=== PATIENT | female | born 1965 | race Hispanic/Latino ===

== ENCOUNTER 2020-07-27 23:21 | Emergency (ER) | payer SELFPAY ==
[2020-07-28 00:55] LABS: Basophils # (Auto) 0.1 K/mm3 (0.0-0.1); Basophils % (Auto) 1.3 % (0.0-1.8); Eosinophils # (Auto) 0.1 K/mm3 (0.0-0.4); Eosinophils % (Auto) 1.2 % (0.0-4.3); Lymphocytes # (Auto) 2.6 K/mm3 (1.2-5.4); Lymphocytes % (Auto) 36.2 % (13.4-35.0); Mean Corpuscular HGB Conc 36 % (30-34); Mean Corpuscular Volume 91 fl (79-97); Monocytes # (Auto) 0.4 K/mm3 (0.0-0.8); Monocytes % (Auto) 5.7 % (0.0-7.3); Platelet Count 170 K/mm3 (140-440); Red Cell Distribution Width 13.8 % (13.2-15.2)
[2020-07-28 00:57] LABS: Hematocrit 43.9 % (30.3-42.9); Hemoglobin 15.7 gm/dl (10.1-14.3)
[2020-07-28 02:37] LABS: BUN/Creatinine Ratio 11; Blood Urea Nitrogen 8 mg/dL (7-17)
[2020-07-28 02:38] LABS: Alanine Aminotransferase 120 units/L (7-56); Calcium 9.1 mg/dL (8.4-10.2); Hemolysis Index 55
[2020-07-28] MEDS ORDERED: SODIUM CHLORIDE 0.9% 1000 ML 1,000 ML IV ONE (04:29)
[2020-07-28] MEDS ORDERED: ONDANSETRON 4 MG/2 ML INJ IV ONE ×2 (04:29→04:57)
[2020-07-28 04:30] LABS: Bilirubin,Urine NEG (Negative); Blood,Urine NEG (Negative); Color,Urine Yellow (Yellow); Mucus,Urine FEW /HPF; Protein,Urine <15 mg/dL mg/dL (Negative); WBC,Urine < 1.0 /HPF (0.0-6.0)
[2020-07-28] MEDS ORDERED: MORPHINE 4 MG/1 ML INJ IV ONE ×2 (04:57→06:28)
[2020-07-28] MEDS ORDERED: diphenhydrAMINE 50 MG/ML VIAL IV ONE (05:24)
[2020-07-28] MEDS ORDERED: FAMOTIDINE 20 MG/2 ML INJ IV ONE (05:24)
[2020-07-28] MEDS ORDERED: diphenhydrAMINE 50 MG/ML VIAL ONE (05:26)
--- NOTE | 2020-07-28 05:40 | Cat Scan Report ---
CT abdomen pelvis w con INDICATION: RLQ/ righth sided abdominal pain. TECHNIQUE: All CT scans at this location are performed using the following dose modulation technique: Automated exposure control. CONTRAST: Omnipaque 300, 100 cc IV injection. COMPARISON: None available. CT ABDOMEN: The parenchymal organs are unremarkable in appearance. Negative for abdominal mass, fluid or inflammation. The bowel is not dilated or thickened. CT PELVIS: Negative for distal ureteral stone, pelvic fluid collection or inflammation. The appendix is normal. IMPRESSION: Negative for obstruction or localized inflammation. Signer Name: Octaviano Esteban MD Signed: 07/28/2020 5:35 AM Workstation Name: [id number]
--- NOTE | 2020-07-28 05:48 | Emergency Department Report ---
ED General Adult HPI - General Chief complaint: Abdominal Pain Stated complaint: ABDOMINAL PAIN Time Seen by Provider: 07/28/20 04:06 Source: patient, family Mode of arrival: Ambulatory Limitations: No Limitations - History of Present Illness Initial comments: 54-year-old female patient with history of diabetes, COPD, and hypertension presents with complaints of right lower abdominal pain x 3 to 4 hours [employer]. She also reports some nausea/vomiting and diarrhea. Patient denies any hematemesis/coffee-ground emesis, melena/hematochezia, chest pain, shortness of breath, fever/chills/sweats, urinary symptoms, or vaginal discharge/dyspareunia. She rates her current pain as a 10/10 in severity and states it worsens with movement of her abdomen. Patient reports history of multiple bowel obstructions and abdominal surgeries. Denies history of appendectomy. -: Sudden Severity scale (0 -10): 10 - Related Data Previous Rx's Medication Instructions Recorded Last Taken Type Dicyclomine [Bentyl] 20 mg PO QID PRN #40 tablet 07/28/20 Unknown Rx Allergies Allergy/AdvReac Type Severity Reaction Status Date / Time Iodinated Contrast Media Allergy Anaphylaxis Verified 07/28/20 00:21 ketorolac [From Toradol] Allergy Anaphylaxis Verified 07/28/20 00:21 ED Review of Systems ROS: Stated complaint: ABDOMINAL PAIN Other details as noted in HPI Constitutional: denies: chills, diaphoresis, fever, malaise, weakness ENT: denies: throat pain Respiratory: denies: cough Cardiovascular: denies: chest pain Endocrine: denies: excessive sweating Gastrointestinal: abdominal pain, nausea, vomiting, diarrhea. denies: consti pation, hematemesis, melena, hematochezia Genitourinary: denies: urgency, dysuria, frequency, hematuria, discharge, abnormal menses, dyspareunia Musculoskeletal: denies: back pain Neurological: denies: headache, weakness, numbness, paresthesias Hematological/Lymphatic: denies: easy bleeding, swollen glands ED Past Medical Hx - Past Medical History Hx Hypertension: Yes Hx COPD: Yes Additional medical history: Bowel Obstruction - Surgical History Past Surgical History?: Yes Additional Surgical History: Bowel Obstruction, Trach x 3 - Social History Smoking Status: Never Smoker Substance Use Type: None - Medications Home Medications: Home Medications Medication Instructions Recorded Confirmed Last Taken Type Dicyclomine [Bentyl] 20 mg PO QID PRN #40 tablet 07/28/20 Unknown Rx ED Physical Exam - General Limitations: No Limitations General appearance: alert, in no apparent distress, obese - Head Head exam: Present: atraumatic, normocephalic - Eye Eye exam: Present: normal appearance - Neck Neck exam: Present: normal inspection - Respiratory Respiratory exam: Present: normal lung sounds bilaterally. Absent: respiratory distress - Cardiovascular Cardiovascular Exam: Present: regular rate, normal rhythm - GI/Abdominal GI/Abdominal exam: Present: distended (Distention versus abdominal obesity), tenderness (Right lower quadrant), normal bowel sounds. Absent: rebound, rigid - Extremities Exam Extremities exam: Present: normal inspection - Back Exam Back exam: Present: normal inspection - Neurological Exam Neurological exam: Present: alert, oriented X3 - Psychiatric Psychiatric exam: Present: normal affect, normal mood - Skin Skin exam: Present: warm, dry, intact, normal color. Absent: rash, cyanosis, diaphoretic ED Course Vital Signs 07/28/20 07/28/20 00:24 05:50 Temperature 98.6 F 98.0 F Pulse Rate 96 H 88 Respiratory 18 17 Rate Blood Pressure 152/92 Blood Pressure 183/91 [Right] O2 Sat by Pulse 95 97 Oximetry ED Medical Decision Making - Lab Data Result diagrams: 07/28/20 00:37 07/28/20 00:37 Lab Results 07/28/20 07/28/20 07/28/20 Range/Units 00:37 00:37 03:53 WBC 7.2 (4.5-11.0) K/mm3 RBC 4.80 (3.65-5.03) M/mm3 Hgb 15.7 H (10.1-14.3) gm/dl Hct 43.9 H (30.3-42.9) % MCV 91 (79-97) fl MCH 33 H (28-32) pg MCHC 36 H (30-34) % RDW 13.8 (13.2-15.2) % Plt Count 170 (140-440) K/mm3 Lymph % (Auto) 36.2 H (13.4-35.0) % Elk % (Auto) 5.7 (0.0-7.3) % Eos % (Auto) 1.2 (0.0-4.3) % Baso % (Auto) 1.3 (0.0-1.8) % Lymph # 2.6 (1.2-5.4) K/mm3 Elk # 0.4 (0.0-0.8) K/mm3 Eos # 0.1 (0.0-0.4) K/mm3 Baso # 0.1 (0.0-0.1) K/mm3 Seg Neutrophils % 55.6 (40.0-70.0) % Seg Neutrophils # 4.0 (1.8-7.7) K/mm3 Sodium 136 L (137-145) mmol/L Potassium 3.6 (3.6-5.0) mmol/L Chloride 98 (98-107) mmol/L Carbon Dioxide 22 (22-30) mmol/L Anion Gap 20 mmol/L BUN 8 (7-17) mg/dL Creatinine 0.7 (0.6-1.2) mg/dL Estimated GFR > 60 ml/min BUN/Creatinine Ratio 11 % Glucose 342 H (65-100) mg/dL Calcium 9.1 (8.4-10.2) mg/dL Total Bilirubin 0.60 (0.1-1.2) mg/dL AST 94 H (5-40) units/L ALT 120 H (7-56) units/L Alkaline Phosphatase 119 (35-129) units/L Total Protein 6.7 (6.3-8.2) g/dL Albumin 4.0 (3.9-5) g/dL Albumin/Globulin Ratio 1.5 % Lipase (13-60) units/L Urine Color Yellow (Yellow) Urine Turbidity Clear (Clear) Urine pH 6.0 (5.0-7.0) Ur Specific [place] 1.022 (1.003-1.030) Urine Protein <15 mg/dl (Negative) mg/dL Urine Glucose (UA) >=500 (Negative) mg/dL Urine Ketones Neg (Negative) mg/dL Urine Blood Neg (Negative) Urine Nitrite Neg (Negative) Urine Bilirubin Neg (Negative) Urine Urobilinogen 2.0 (<2.0) mg/dL Ur Leukocyte Esterase Neg (Negative) Urine WBC (Auto) < 1.0 (0.0-6.0) /HPF Urine RBC (Auto) 1.0 (0.0-6.0) /HPF U Epithel Cells (Auto) 2.0 (0-13.0) /HPF Urine Mucus Few /HPF 07/28/20 Range/Units 03:56 WBC (4.5-11.0) K/mm3 RBC (3.65-5.03) M/mm3 Hgb (10.1-14.3) gm/dl Hct (30.3-42.9) % MCV (79-97) fl MCH (28-32) pg MCHC (30-34) % RDW (13.2-15.2) % Plt Count (140-440) K/mm3 Lymph % (Auto) (13.4-35.0) % Elk % (Auto) (0.0-7.3) % Eos % (Auto) (0.0-4.3) % Baso % (Auto) (0.0-1.8) % Lymph # (1.2-5.4) K/mm3 Elk # (0.0-0.8) K/mm3 Eos # (0.0-0.4) K/mm3 Baso # (0.0-0.1) K/mm3 Seg Neutrophils % (40.0-70.0) % Seg Neutrophils # (1.8-7.7) K/mm3 Sodium (137-145) mmol/L Potassium (3.6-5.0) mmol/L Chloride (98-107) mmol/L Carbon Dioxide (22-30) mmol/L Anion Gap mmol/L BUN (7-17) mg/dL Creatinine (0.6-1.2) mg/dL Estimated GFR ml/min BUN/Creatinine Ratio % Glucose (65-100) mg/dL Calcium (8.4-10.2) mg/dL Total Bilirubin (0.1-1.2) mg/dL AST (5-40) units/L ALT (7-56) units/L Alkaline Phosphatase (35-129) units/L Total Protein (6.3-8.2) g/dL Albumin (3.9-5) g/dL Albumin/Globulin Ratio % Lipase 59 (13-60) units/L Urine Color (Yellow) Urine Turbidity (Clear) Urine pH (5.0-7.0) Ur Specific [place] (1.003-1.030) Urine Protein (Negative) mg/dL Urine Glucose (UA) (Negative) mg/dL Urine Ketones (Negative) mg/dL Urine Blood (Negative) Urine Nitrite (Negative) Urine Bilirubin (Negative) Urine Urobilinogen (<2.0) mg/dL Ur Leukocyte Esterase (Negative) Urine WBC (Auto) (0.0-6.0) /HPF Urine RBC (Auto) (0.0-6.0) /HPF U Epithel Cells (Auto) (0-13.0) /HPF Urine Mucus /HPF - Radiology Data Radiology results: report reviewed CT abdomen pelvis w con INDICATION: RLQ/ righth sided abdominal pain. TECHNIQUE: All CT scans at this location are performed using the following dose modulation technique: Automated exposure control. CONTRAST: Omnipaque 300, 100 cc IV injection. COMPARISON: None available. CT ABDOMEN: The parenchymal organs are unremarkable in appearance. Negative for abdominal mass, fluid or inflammation. The bowel is not dilated or thickened. CT PELVIS: Negative for distal ureteral stone, pelvic fluid collection or inflammation. The appendix is normal. IMPRESSION: Negative for obstruction or localized inflammation. - Medical Decision Making 54-year-old female patient with history of diabetes and hypertension presents with complaints of right lower abdominal pain x 3 to 4 hours [employer]. Patient reports history of multiple bowel obstructions and abdominal surgeries. Tenderness noted to right lower quadrant/side on exam. CT abdomen and pelvis was performed with contrast and is negative for any acute abnormalities. Patient declines pelvic ultrasound. Review patient in [place] [employer]ATE-patient's records are suspicious for drug-seeking behavior. Patient requested Benadryl after having itching from the IV contrast. Her vitals are normal and she is nontoxic-appearing. Patient is stable for discharge home and follow-up with GI. Strict return precautions were discussed in detail with patient who verbalizes understanding. Critical care attestation.: If time is entered above; I have spent that time in minutes in the direct care of this critically ill patient, excluding procedure time. ED Disposition Clinical Impression: Acute abdominal pain Disposition: DC- TO HOME OR SELFCARE Is pt being admited?: No Condition: Stable Instructions: Abdominal Pain (ED) Prescriptions: Dicyclomine [Bentyl] 20 mg PO QID PRN #40 tablet PRN Reason: abdominal pain Referrals: AUDI JOHN JR, MD [Primary Care Provider] - 3-5 Days [facility] [Provider Group] - 2-3 Days
[2020-07-28 05:51] VITALS: BP 183/91
== END 2020-07-28 07:00 | disposition home or self-care (01) ==
LOC: ED 23:21
DX: R10.31 Right lower quadrant pain (principal); R11.2 Nausea with vomiting, unspecified; R19.7 Diarrhea, unspecified; I10 Essential (primary) hypertension; J44.9 Chronic obstructive pulmonary disease, unspecified; Z88.6 Allergy status to analgesic agent; Z91.041 Radiographic dye allergy status
CPT/HCPCS: 36415; 74177; 80053; 81001; 83690; 85025; 96361; 96374; 96375; 99284; J1200; J2270; J2405; J7030; Q9967

== ENCOUNTER 2021-02-08 17:31 | Emergency (ER) | payer OTHER ==
[2021-02-08] MEDS ORDERED: SODIUM CHLORIDE 0.9% 1000 ML 1,000 ML IV ONE (17:58)
[2021-02-08] MEDS ORDERED: ONDANSETRON 4 MG/2 ML INJ IV ONE ×2 (17:58→18:43)
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
[2021-02-08] MEDS ORDERED: fentaNYL 100 MCG/2 ML INJ IV ONE ×2 (18:43→20:48)
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
[2021-02-08 19:01] LABS: Basophils % (Auto) 0.7 % (0.0-1.8); Eosinophils # (Auto) 0.1 K/mm3 (0.0-0.4); Eosinophils % (Auto) 1.5 % (0.0-4.3); Lymphocytes # (Auto) 2.4 K/mm3 (1.2-5.4); Lymphocytes % (Auto) 40.4 % (13.4-35.0); Mean Corpuscular HGB Conc 36 % (30-34); Mean Corpuscular Volume 91 fl (79-97); Monocytes # (Auto) 0.3 K/mm3 (0.0-0.8); Monocytes % (Auto) 4.5 % (0.0-7.3); Platelet Count 159 K/mm3 (140-440); Red Blood Count 4.53 M/mm3 (3.65-5.03); Red Cell Distribution Width 13.7 % (13.2-15.2)
[2021-02-08 19:06] LABS: Hematocrit 41.4 % (30.3-42.9); Hemoglobin 14.9 gm/dl (10.1-14.3)
[2021-02-08 19:13] LABS: Alanine Aminotransferase 103 units/L (7-56); Albumin 3.8 g/dL (3.9-5); Blood Urea Nitrogen 6 mg/dL (7-17); Calcium 8.5 mg/dL (8.4-10.2); Hemolysis Index 35
[2021-02-08 19:14] LABS: BUN/Creatinine Ratio 10
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
[2021-02-08 21:04] LABS: Bilirubin,Urine NEG (Negative); Blood,Urine NEG (Negative); Color,Urine Yellow (Yellow); Mucus,Urine FEW /HPF; Protein,Urine <15 mg/dL mg/dL (Negative); Urobilinogen,Urine < 2.0 mg/dL (<2.0); WBC,Urine < 1.0 /HPF (0.0-6.0)
[2021-02-08 21:31] VITALS: BP 148/72
== END 2021-02-08 21:29 | disposition home or self-care (01) ==
LOC: ED 17:31
DX: S16.1XXA Strain of muscle, fascia and tendon at neck level, initial encounter (principal); S30.1XXA Contusion of abdominal wall, initial encounter; S09.90XA Unspecified injury of head, initial encounter; I10 Essential (primary) hypertension; J44.9 Chronic obstructive pulmonary disease, unspecified; F17.200 Nicotine dependence, unspecified, uncomplicated; Z79.899 Other long term (current) drug therapy; Z86.73 Personal history of transient ischemic attack (TIA), and cerebral infarction without residual deficits; Z98.890 Other specified postprocedural states; Z88.8 Allergy status to other drugs, medicaments and biological substances; Z90.710 Acquired absence of both cervix and uterus; Z91.041 Radiographic dye allergy status; V49.59XA Passenger injured in collision with other motor vehicles in traffic accident, initial encounter; Y92.410 Unspecified street and highway as the place of occurrence of the external cause; Y93.89 Activity, other specified; Y99.8 Other external cause status
CPT/HCPCS: 36415; 70450; 71046; 72125; 73000; 74176; 80053; 81001; 83690; 83735; 85025; 96361; 96374; 96375; 96376; 99284; J2405; J3010; J7030

== ENCOUNTER 2021-02-21 22:17 | Emergency (ER) | payer SELFPAY ==
[2021-02-22] MEDS ORDERED: ONDANSETRON 4 MG/2 ML INJ IV ONE ×2 (00:09→02:04)
[2021-02-22] MEDS ORDERED: SODIUM CHLORIDE 0.9% 1000 ML 1,000 ML IV ONE ×2 (00:09→02:04)
[2021-02-22 00:12] LABS: Alanine Aminotransferase 115 units/L (7-56); BUN/Creatinine Ratio 14; Blood Urea Nitrogen 11 mg/dL (7-17); Calcium 8.7 mg/dL (8.4-10.2); Hemolysis Index 5
[2021-02-22] MEDS ORDERED: MORPHINE 4 MG/1 ML INJ IV ONE ×2 (00:24→02:04)
[2021-02-22] MEDS ORDERED: diphenhydrAMINE 50 MG/ML VIAL IV ONE ×2 (00:24→01:10)
[2021-02-22] MEDS ORDERED: methylPREDNISolone Sod Succinate 125 MG/2 ML INJ IV ONE (00:24)
[2021-02-22 00:44] LABS: Basophils % (Auto) 0.3 % (0.0-1.8); Eosinophils # (Auto) 0.1 K/mm3 (0.0-0.4); Eosinophils % (Auto) 1.6 % (0.0-4.3); Hematocrit 46.6 % (30.3-42.9); Hemoglobin 16.4 gm/dl (10.1-14.3); Lymphocytes # (Auto) 2.3 K/mm3 (1.2-5.4); Lymphocytes % (Auto) 32.1 % (13.4-35.0); Mean Corpuscular HGB Conc 35 % (30-34); Mean Corpuscular Volume 92 fl (79-97); Monocytes # (Auto) 0.5 K/mm3 (0.0-0.8); Monocytes % (Auto) 6.4 % (0.0-7.3); Platelet Count 166 K/mm3 (140-440); Red Blood Count 5.06 M/mm3 (3.65-5.03); Red Cell Distribution Width 13.4 % (13.2-15.2)
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
[2021-02-22 00:55] LABS: Bacteria,Urine 1+ /HPF (Negative); Bilirubin,Urine NEG (Negative); Blood,Urine NEG (Negative); Color,Urine Yellow (Yellow); Mucus,Urine FEW /HPF; Protein,Urine <15 mg/dL mg/dL (Negative); Urobilinogen,Urine < 2.0 mg/dL (<2.0)
[2021-02-22] MEDS ORDERED: FAMOTIDINE 20 MG/2 ML INJ IV ONE (01:12)
--- NOTE | 2021-02-22 01:44 | Emergency Department Report ---
ED Abdominal Pain HPI - General Chief Complaint: Abdominal Pain Stated Complaint: ABDOMINAL PAIN/VOMITING BOWEL/LT KNEE PAIN FELL PUI?: No Time Seen by Provider: 02/22/21 00:16 Source: patient Mode of arrival: Ambulatory Limitations: No Limitations - History of Present Illness Initial Comments: Chief complaint: "I have been through this before." HPI: This is a 55-year-old female with history of cervical cancer pending hysterectomy, trichotillomania causing several bowel obstructions, COPD, diabetes mellitus, hypertension who presents with abdominal pain and vomiting. She has constipation for the past 10 days. She started vomiting "feces" today. She has pain in the left upper quadrant rating to the back. Moderate severity. She consulted her [place] substance abuse rn Dr. Campos who recommended ED evaluation. Patient states that psychotropic and anxiolytic medication such as Xanax and other medications will not control her trichotillomania. She states that "I just cannot help myself." Patient also has left knee pain after falling recently. Moderate pain pain with ambulation. MD Complaint: abdominal pain -: Gradual, days(s) (10 days ago) Location: [facility] Radiation: back Severity: severe Severity scale (0 -10): 10 Quality: cramping, aching Consistency: constant Improves With: nothing Worsens With: nothing Associated Symptoms: vomiting, constipation - Related Data Previous Rx's Medication Instructions Recorded Last Taken Type Dicyclomine [Bentyl] 20 mg PO QID PRN #40 tablet 07/28/20 Unknown Rx Cyclobenzaprine [Flexeril] 10 mg PO TID PRN #14 tablet 02/08/21 Unknown Rx HYDROcodone/APAP 5-325 [[place] 1 - 2 each PO Q6HR PRN #14 tablet 02/08/21 Unknown Rx 5/325] Allergies Allergy/AdvReac Type Severity Reaction Status Date / Time Iodinated Contrast Media Allergy Anaphylaxis Verified 07/28/20 00:21 ketorolac [From Toradol] Allergy Anaphylaxis Verified 07/28/20 00:21 ED Review of Systems ROS: Stated complaint: ABDOMINAL PAIN/VOMITING BOWEL/LT KNEE PAIN FELL Other details as noted in HPI Comment: All other systems reviewed and negative Constitutional: denies: fever, malaise Respiratory: denies: cough, shortness of breath Gastrointestinal: abdominal pain, nausea, vomiting, constipation Musculoskeletal: arthralgia ED Past Medical Hx - Past Medical History Previous Medical History?: Yes Hx Hypertension: Yes Hx Diabetes: Yes Hx COPD: Yes Additional medical history: Trichotillomania, bowel Obstruction-2017, CERVICAL CA - Surgical History Past Surgical History?: Yes Additional Surgical History: Bowel Obstruction, Trach x 3 - Social History Smoking Status: Never Smoker Substance Use Type: None - Medications Home Medications: Home Medications Medication Instructions Recorded Confirmed Last Taken Type Dicyclomine [Bentyl] 20 mg PO QID PRN #40 tablet 07/28/20 Unknown Rx Cyclobenzaprine [Flexeril] 10 mg PO TID PRN #14 tablet 02/08/21 Unknown Rx HYDROcodone/APAP 5-325 [[place] 1 - 2 each PO Q6HR PRN #14 tablet 02/08/21 Unknown Rx 5/325] ED Physical Exam - General Limitations: No Limitations General appearance: alert, in no apparent distress - Head Head exam: Present: atraumatic, normocephalic - Eye Eye exam: Present: normal appearance - ENT ENT exam: Present: mucous membranes moist - Neck Neck exam: Present: normal inspection, full ROM - Respiratory Respiratory exam: Present: normal lung sounds bilaterally. Absent: respiratory distress, wheezes, rales, rhonchi - Cardiovascular Cardiovascular Exam: Present: regular rate, normal rhythm, normal heart sounds. Absent: systolic murmur, diastolic murmur, rubs, gallop - GI/Abdominal GI/Abdominal exam: Present: soft, normal bowel sounds. Absent: distended, tenderness, guarding, rebound - Extremities Exam Extremities exam: Present: normal inspection - Neurological Exam Neurological exam: Present: alert, oriented X3 - Psychiatric Psychiatric exam: Present: normal affect, normal mood - Skin Skin exam: Present: warm, dry, intact, normal color. Absent: rash ED Course Vital Signs 02/21/21 02/22/21 22:46 01:45 Temperature 98.3 F Pulse Rate 93 H 78 Respiratory 20 18 Rate Blood Pressure 139/83 Blood Pressure 144/91 [Right] O2 Sat by Pulse 98 96 Oximetry ED Medical Decision Making - Lab Data Result diagrams: 02/21/21 22:55 02/21/21 22:55 - Radiology Data Radiology results: report reviewed Findings Reporting MD: Naveed Burgess Dictation Time: February 21, 2021 23:49 [place] [employer] Former: Not available [employer] Date: LEFT KNEE 3 VIEWS INDICATION / CLINICAL INFORMATION: left knee pain fall. COMPARISON: None available. FINDINGS: Mild degenerative changes but no acute skeletal abnormalities. No evidence of significant joint effusion or hemarthrosis. CT abdomen pelvis w con INDICATION: vomiting "feces" hx of bowel obstruction. TECHNIQUE: All CT scans at this location are performed using CT dose reduction for ALARA by means of automated exposure control. COMPARISON: 02/08/2021 FINDINGS: Lung bases are clear of acute disease. Liver, gallbladder, spleen, pancreas, kidneys and adrenals are negative. Abdominal aorta is normal in size. No adenopathy. Pelvis Normal appendix. Urinary bladder and distal ureters are negative. Uterus and ovaries appear unremarkable. No significant bowel abnormalities. Chronic appearing L2 compression fracture, unchanged. No new skeletal lesions. IMPRESSION: 1. No acute abnormalities and no change since the exam 2 weeks ago. No evidence of bowel obstruction. - Medical Decision Making 1. Abdominal pain: Patient informed me that she takes GoLYTELY MiraLAX promethazine suppository and Zofran. Unclear diagnosis. However she has been followed by gastroenterology specialist. I suspect IBS and laxative dependence. 2. Left knee pain after fall 2 days ago. Patient states that the knee has been "giving out on her". I do not appreciate laxity on knee exam. Patient was placed in a knee immobilizer under my supervision. After placement of the left knee immobilizer the extremity was neurovascularly intact. Critical care attestation.: If time is entered above; I have spent that time in minutes in the direct care of this critically ill patient, excluding procedure time. ED Disposition Clinical Impression: Abdominal pain, Constipation, Left knee sprain Disposition: TO HOME OR SELFCARE Is pt being admited?: No Does the pt Need Aspirin: No Condition: Stable Instructions: Abdominal Pain (ED), Chronic Constipation, Knee Sprain, Adult, [id number] Referrals: CADE MANRIQUE MD [Staff Physician] - 3-5 Days SAY GARCIA MD [Staff Physician] - 3-5 Days
--- NOTE | 2021-02-22 01:53 | Cat Scan Report ---
CT abdomen pelvis w con INDICATION: vomiting "feces" hx of bowel obstruction. TECHNIQUE: All CT scans at this location are performed using CT dose reduction for ALARA by means of automated e xposure control. COMPARISON: 02/08/2021 FINDINGS: Lung bases are clear of acute disease. Liver, gallbladder, spleen, pancreas, kidneys and adrenals are negative. Abdominal aorta is normal in size. No adenopathy. Pelvis Normal appendix. Urinary bladder and distal ureters are negative. Uterus and ovaries appear unremarka ble. No significant bowel abnormalities. Chronic appearing L2 compression fracture, unchanged. No new skeletal lesions. IMPRESSION: 1. No acute abnormalities and no change since the exam 2 weeks ago. No evidence of bowel obstruction. Signer Name: Naveed Burgess MD Signed: 02/22/2021 1:49 AM Workstation Name: [id number]
[2021-02-22] MEDS ORDERED: PANTOPRAZOLE 40 MG INJ IV ONE (02:04)
[2021-02-22 04:40] VITALS: BP 137/87
== END 2021-02-22 04:05 | disposition home or self-care (01) ==
LOC: ED 22:17
DX: S83.92XA Sprain of unspecified site of left knee, initial encounter (principal); K59.00 Constipation, unspecified; I10 Essential (primary) hypertension; E11.9 Type 2 diabetes mellitus without complications; J44.9 Chronic obstructive pulmonary disease, unspecified; R10.9 Unspecified abdominal pain; Z79.899 Other long term (current) drug therapy; Z88.8 Allergy status to other drugs, medicaments and biological substances; Z91.041 Radiographic dye allergy status; Z98.890 Other specified postprocedural states; X58.XXXA Exposure to other specified factors, initial encounter; Y93.89 Activity, other specified; Y92.89 Other specified places as the place of occurrence of the external cause; Y99.8 Other external cause status
CPT/HCPCS: 29505; 36415; 73562; 74177; 80053; 81001; 83690; 85025; 96361; 96374; 96375; 96376; 99284; C9113; J1200; J2270; J2405; J2930; J7030; Q9967

== ENCOUNTER 2021-02-22 23:45 | Emergency (ER) | payer SELFPAY ==
[2021-02-23 01:34] LABS: Basophils # (Auto) 0.1 K/mm3 (0.0-0.1); Basophils % (Auto) 0.7 % (0.0-1.8); Eosinophils % (Auto) 0.2 % (0.0-4.3); Hematocrit 43.4 % (30.3-42.9); Hemoglobin 15.3 gm/dl (10.1-14.3); Lymphocytes # (Auto) 1.7 K/mm3 (1.2-5.4); Lymphocytes % (Auto) 13.4 % (13.4-35.0); Mean Corpuscular HGB Conc 35 % (30-34); Mean Corpuscular Volume 92 fl (79-97); Monocytes # (Auto) 0.6 K/mm3 (0.0-0.8); Monocytes % (Auto) 4.5 % (0.0-7.3); Platelet Count 182 K/mm3 (140-440); Red Blood Count 4.74 M/mm3 (3.65-5.03); Red Cell Distribution Width 13.5 % (13.2-15.2)
[2021-02-23 01:47] LABS: Alanine Aminotransferase 85 units/L (7-56); Albumin 4.2 g/dL (3.9-5); BUN/Creatinine Ratio 12; Blood Urea Nitrogen 11 mg/dL (7-17); Hemolysis Index 20
[2021-02-23] MEDS ORDERED: SODIUM CHLORIDE 0.9% 1000 ML 1,000 ML IV ONE (02:19)
[2021-02-23] MEDS ORDERED: INSULIN REGULAR, HUMAN 100 UNITS/1 ML IV ONE (02:19)
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
[2021-02-23] MEDS ORDERED: MORPHINE 4 MG/1 ML INJ IV ONE (03:08)
[2021-02-23] MEDS ORDERED: ONDANSETRON 4 MG/2 ML INJ IV ONE (03:08)
[2021-02-23 04:29] VITALS: BP 151/89
== END 2021-02-23 04:30 | disposition home or self-care (01) ==
LOC: ED 23:45
DX: S63.501A Unspecified sprain of right wrist, initial encounter (principal); S83.91XA Sprain of unspecified site of right knee, initial encounter; E11.51 Type 2 diabetes mellitus with diabetic peripheral angiopathy without gangrene; K59.00 Constipation, unspecified; R10.9 Unspecified abdominal pain; R11.2 Nausea with vomiting, unspecified; I10 Essential (primary) hypertension; J44.9 Chronic obstructive pulmonary disease, unspecified; Z79.899 Other long term (current) drug therapy; Z88.8 Allergy status to other drugs, medicaments and biological substances; Z91.041 Radiographic dye allergy status; Z98.890 Other specified postprocedural states; Z90.710 Acquired absence of both cervix and uterus; V49.29XA Unspecified car occupant injured in collision with other motor vehicles in nontraffic accident, initial encounter; Y92.410 Unspecified street and highway as the place of occurrence of the external cause; Y93.89 Activity, other specified; Y99.8 Other external cause status
CPT/HCPCS: 36415; 73110; 73562; 80053; 83690; 85025; 96361; 96374; 96375; 99283; J2270; J2405; J7030; J1815

== ENCOUNTER 2021-02-28 15:26 | Emergency (ER) | payer SELFPAY ==
[2021-02-28 15:58] VITALS: BP 131/73
--- NOTE | 2021-02-28 16:01 | Event Note ---
ED Screening Note Date of service: 02/28/21 Time: 15:57 ED Screening Note: 55-year-old female patient with cervical cancer (not currently on chemotherapy; scheduled for upcoming hysterectomy), diabetes, and small bowel obstruction presents to the emergency department with complaints of shortness of breath, abdominal pain, nausea, vomiting, and diarrhea starting last night. States her blood glucose levels have been difficult to control, as high as 700's-800's in recent days. Oncologist is Dr. Castelan. Fingerstick glucose in triage is 481. General: Awake, appropriately interactive. Appears uncomfortable. Neck: Supple. Full range of motion intact. Cardiovascular: Normal peripheral perfusion. Pulmonary: No respiratory distress. Patient is speaking normally without use of accessory muscles. Abdomen: Soft, diffusely tender. No guarding, rigidity, or rebound. Skin: No apparent rashes or lesions. Neurological: No facial asymmetry. Speech is clear. Follows commands. Patient is alert and oriented. Musculoskeletal: Moves all four extremities spontaneously with normal range of motion. Psych: Cooperative. Appropriate mood and affect. Iodine allergy noted; CT abd/pelvis w/o contrast ordered. This initial assessment/diagnostic orders/clinical plan/treatment(s) is/are subject to change based on patients health status, clinical progression and re- assessment by fellow clinical providers in the ED. Further treatment and workup at subsequent clinical providers discretion. Patient/guardian urged not to elope from the ED as their condition may be serious if not clinically assessed and managed.
--- NOTE | 2021-02-28 16:33 | XRay Report ---
CHEST 2 VIEWS, 02/28/2021 4:31 PM INDICATION: Shortness of breath COMPARISON: Chest radiograph, 02/08/2021 FINDINGS: Support devices: None. Heart: The cardiac silhouette is normal in size. Lungs/pleura: The lungs are clear of focal airspace disease or significant pleural effusion. Additional findings: There are mild multilevel degenerative changes of the thoracic spine. IMPRESSION: 1. No evidence of acute cardiopulmonary process. Signer Name: Carole Matthews MD Signed: 02/28/2021 4:28 PM Workstation Name: [id number]
[2021-02-28 17:04] LABS: Basophils % (Auto) 0.3 % (0.0-1.8); Eosinophils # (Auto) 0.1 K/mm3 (0.0-0.4); Eosinophils % (Auto) 1.3 % (0.0-4.3); Hematocrit 47.2 % (30.3-42.9); Hemoglobin 16.3 gm/dl (10.1-14.3); Lymphocytes # (Auto) 1.8 K/mm3 (1.2-5.4); Lymphocytes % (Auto) 25.4 % (13.4-35.0); Mean Corpuscular HGB Conc 35 % (30-34); Mean Corpuscular Volume 92 fl (79-97); Monocytes # (Auto) 0.4 K/mm3 (0.0-0.8); Monocytes % (Auto) 5.3 % (0.0-7.3); Platelet Count 165 K/mm3 (140-440); Red Blood Count 5.15 M/mm3 (3.65-5.03); Red Cell Distribution Width 13.6 % (13.2-15.2)
--- NOTE | 2021-02-28 17:08 | Cat Scan Report ---
CT ABDOMEN AND PELVIS WITHOUT CONTRAST HISTORY: MAIN. Abdominal pain with nausea and vomiting COMPARISON: None. TECHNIQUE: CT images of the abdomen and pelvis were obtained without administration of intravenous co ntrast. All CT scans at this location are performed using CT dose reduction for ALARA by means of au tomated exposure control. FINDINGS: Lungs/bones: Tiny area of atelectasis/density in the left lung posteriorly Abdomen/pelvis: Within limits of a noncontrast exam the liver, spleen, left adrenal gland, pancreas and gallbladder appear normal. There is nodularity within the right adrenal gland represent an adenom a. No definite renal stones are seen. No bowel obstruction is identified. Appendix appears normal. No free fluid is seen in the abdomen or pelvis. Urinary bladder appears normal. No obstructing stone is seen. Degenerative changes seen within the spine deforming the superior endplate of L2 vertebral bod y. IMPRESSION: 1. Chronic changes within the spine with old superior endplate compression fractures of L2 and endpla te changes at L1-L2. 2. No bowel obstruction is seen. Appendix appears normal. 3. Right adrenal adenoma. Signer Name: Germán Neves MD Signed: 02/28/2021 5:03 PM Workstation Name: [id number]
[2021-02-28 17:11] LABS: Bilirubin,Urine NEG (Negative); Blood,Urine MOD (Negative); Color,Urine Yellow (Yellow); Mucus,Urine FEW /HPF; Protein,Urine <15 mg/dL mg/dL (Negative); Urobilinogen,Urine < 2.0 mg/dL (<2.0)
[2021-02-28 17:23] LABS: Alanine Aminotransferase 109 units/L (7-56); Albumin 3.9 g/dL (3.9-5); Blood Urea Nitrogen 10 mg/dL (7-17); Calcium 8.8 mg/dL (8.4-10.2); Hemolysis Index 8
[2021-02-28 17:29] LABS: BUN/Creatinine Ratio 14
[2021-02-28] MEDS ORDERED: ONDANSETRON 4 MG ODT TAB PO ONE (17:56)
== END 2021-02-28 18:20 | disposition left against medical advice (07) ==
LOC: ED 15:26
DX: R19.7 Diarrhea, unspecified (principal); Z53.21 Procedure and treatment not carried out due to patient leaving prior to being seen by health care provider
CPT/HCPCS: 36415; 71046; 74176; 80053; 81001; 82962; 83690; 83735; 85025; 87086

== ENCOUNTER 2021-03-22 14:58 | Emergency (ER) | payer SELFPAY ==
[2021-03-22] MEDS ORDERED: diphenhydrAMINE 50 MG/ML VIAL IV ONE (18:23)
[2021-03-22] MEDS ORDERED: methylPREDNISolone Sod Succinate 125 MG/2 ML INJ IV ONE (18:23)
[2021-03-22] MEDS ORDERED: MORPHINE 4 MG/1 ML INJ IV ONE (18:23)
[2021-03-22] MEDS ORDERED: METOCLOPRAMIDE 10 MG/2 ML INJ IV ONE (18:24)
--- NOTE | 2021-03-22 18:44 | Event Note ---
ED Screening Note Date of service: 03/22/21 Time: 18:40 ED Screening Note: 55-year-old female patient with history of bowel obstruction presents to emergency department with complaints of fever, abdominal pain, nausea, and vomiting starting last night. Patient states the pain began gradually and first seemed localized to the periumbilical region. Today, the pain has worsened, described as "sharp," and has since migrated to the right lower quadrant. Last bowel movement was yesterday. Temperature was 101 F today. Attempted to take Tylenol but was unable to keep it down due to the vomiting. No history of prior appendectomy. Denies chest pain, shortness of breath, hematemesis, rectal bleeding, melena, dysuria, syncope, rash. Denies all other complaints at this time. Of note, patient states she has an iodine allergy, but has tolerated IV contrast on prior occasions when pretreated with Solu-Medrol and Benadryl. She also states that Zofran has historically been ineffective for her in treating nausea/vomiting. General: Awake, appropriately interactive, no acute distress. Neck: Supple. Full range of motion intact. Cardiovascular: Normal peripheral perfusion. Pulmonary: No respiratory distress. Patient is speaking normally without use of accessory muscles. Abdomen: Soft, nondistended. Positive McBurney's point tenderness. Positive Rovsing sign. No guarding, rigidity, or rebound. Skin: No apparent rashes or lesions. Neurological: No facial asymmetry. Speech is clear. Follows commands. Patient is alert and oriented. Musculoskeletal: Moves all four extremities spontaneously with normal range of motion. Psych: Cooperative. Appropriate mood and affect. I have greeted and performed a focused rapid initial assessment of this patient. A comprehensive ED assessment and evaluation of the patient, analysis of all test results, and completion of the medical decision-making process will be conducted by additional ED providers. This initial assessment/diagnostic orders/clinical plan/treatment(s) is/are subject to change based on patients health status, clinical progression and re-assessment. Further treatment and workup at subsequent clinical provider's discretion. Patient/guardian urged not to elope from the ED as their condition may be serious if not clinically assessed and managed.
[2021-03-22 18:48] LABS: Basophils # (Auto) 0.1 K/mm3 (0.0-0.1); Basophils % (Auto) 0.8 % (0.0-1.8); Eosinophils # (Auto) 0.1 K/mm3 (0.0-0.4); Eosinophils % (Auto) 0.9 % (0.0-4.3); Hematocrit 44.1 % (30.3-42.9); Hemoglobin 15.5 gm/dl (10.1-14.3); Lymphocytes # (Auto) 2.5 K/mm3 (1.2-5.4); Lymphocytes % (Auto) 34.1 % (13.4-35.0); Mean Corpuscular HGB Conc 35 % (30-34); Mean Corpuscular Volume 92 fl (79-97); Monocytes # (Auto) 0.4 K/mm3 (0.0-0.8); Monocytes % (Auto) 5.5 % (0.0-7.3); Platelet Count 159 K/mm3 (140-440); Red Blood Count 4.81 M/mm3 (3.65-5.03); Red Cell Distribution Width 13.7 % (13.2-15.2)
[2021-03-22 19:11] LABS: Alanine Aminotransferase 77 units/L (7-56); Blood Urea Nitrogen 15 mg/dL (7-17); Calcium 8.4 mg/dL (8.4-10.2); Hemolysis Index 13
[2021-03-22 19:13] LABS: BUN/Creatinine Ratio 21
[2021-03-22 19:57] LABS: Bacteria,Urine 1+ /HPF (Negative); Bilirubin,Urine NEG (Negative); Blood,Urine NEG (Negative); Calcium Oxalate Crystals,Urine 2+; Color,Urine Amber (Yellow); Mucus,Urine FEW /HPF
[2021-03-22] MEDS ORDERED: methylPREDNISolone Sod Succinate 125 MG/2 ML INJ ONE (20:44)
[2021-03-22] MEDS ORDERED: MORPHINE 4 MG/1 ML INJ ONE (20:44)
[2021-03-22] MEDS ORDERED: METOCLOPRAMIDE 10 MG/2 ML INJ ONE (20:45)
[2021-03-22] MEDS ORDERED: diphenhydrAMINE 50 MG/ML VIAL ONE (20:45)
--- NOTE | 2021-03-22 21:28 | Emergency Department Report ---
HPI - General Chief Complaint: Abdominal Pain Time Seen by Provider: 03/22/21 18:19 - HPI HPI: This is a 55-year-old female who presents to the emergency department with complaint of middle to right sided abdominal pain that started earlier in the day. It is associated with some nausea with vomiting. Currently she says the abdominal pain is a 9 out of 10 in intensity and very sharp. The nausea and vomiting has kept her from taking her normal home medications and she has not taken anything else for her symptoms prior to presentation today. The patient has a past medical history of diabetes mellitus, trichotillomania causing recurrent bowel obstructions, COPD, and cervical cancer pending hysterectomy. She follows with a dye blender through [place]. Patient was last seen here for similar symptoms on 02/22/[address] scan of the abdomen and pelvis that did not show any acute process. No recent travel or sick contacts at home. No known aggravating or alleviating factors. ED Past Medical Hx - Past Medical History Previous Medical History?: Yes Hx Hypertension: Yes Hx Diabetes: Yes Hx COPD: Yes Additional medical history: Trichotillomania, bowel Obstruction-2016, CERVICAL CA - Surgical History Additional Surgical History: Bowel Obstruction, Trach x 3 - Social History Smoking Status: Current Some Day Smoker Substance Use Type: None - Medications Home Medications: Home Medications Medication Instructions Recorded Confirmed Last Taken Type Dicyclomine [Bentyl] 20 mg PO QID PRN #40 tablet 07/28/20 Unknown Rx Cyclobenzaprine [Flexeril] 10 mg PO TID PRN #14 tablet 02/08/21 Unknown Rx HYDROcodone/APAP 5-325 [[place] 1 - 2 each PO Q6HR PRN #14 tablet 02/08/21 Unknown Rx 5/325] ED Review of Systems ROS: Stated complaint: LOWER RIGHT SIDE PAINS Other details as noted in HPI Comment: All other systems reviewed and negative Constitutional: denies: chills, fever Eyes: denies: eye pain, vision change ENT: denies: ear pain, throat pain Respiratory: denies: cough, shortness of breath Cardiovascular: denies: chest pain, palpitations Gastrointestinal: abdominal pain, nausea, vomiting Genitourinary: denies: dysuria, discharge Musculoskeletal: denies: back pain, arthralgia Skin: denies: rash, lesions Neurological: denies: headache, weakness Physical Exam - Physical Exam Vital Signs: Vital Signs 03/22/21 03/22/21 17:23 21:00 Temperature 98.8 F Pulse Rate 89 Respiratory 18 18 Rate Blood Pressure 157/94 [Right] O2 Sat by Pulse 100 Oximetry Physical Exam: GENERAL: The patient is well-developed well-nourished. HENT: Normocephalic. Atraumatic. Patient has moist mucous membranes. EYES: Extraocular motions are intact. NECK: Supple. Trachea is midline. CHEST/LUNGS: Clear to auscultation. There is no respiratory distress noted. HEART/CARDIOVASCULAR: Regular. There is no tachycardia. There is no murmur. ABDOMEN: Abdomen is soft. Mild generalized abdominal tenderness to palpation. No guarding. Patient has normal bowel sounds. No peritoneal signs with heel strike. SKIN: Skin is warm and dry. NEURO: The patient is awake, alert, and oriented. The patient is cooperative. The patient has no focal neurologic deficits. Normal speech. MUSCULOSKELETAL: There is no tenderness or deformity. There is no limitation range of motion. ED Course Vital Signs 03/22/21 03/22/21 17:23 21:00 Temperature 98.8 F Pulse Rate 89 Respiratory 18 18 Rate Blood Pressure 157/94 [Right] O2 Sat by Pulse 100 Oximetry ED Medical Decision Making - Lab Data Result diagrams: 03/22/21 18:37 03/22/21 18:37 Lab Results 03/22/21 03/22/21 03/22/21 Range/Units 18:37 18:37 18:37 WBC 7.3 (4.5-11.0) K/mm3 RBC 4.81 (3.65-5.03) M/mm3 Hgb 15.5 H (10.1-14.3) gm/dl Hct 44.1 H (30.3-42.9) % MCV 92 (79-97) fl MCH 32 (28-32) pg MCHC 35 H (30-34) % RDW 13.7 (13.2-15.2) % Plt Count 159 (140-440) K/mm3 Lymph % (Auto) 34.1 (13.4-35.0) % [place] % (Auto) 5.5 (0.0-7.3) % Eos % (Auto) 0.9 (0.0-4.3) % Baso % (Auto) 0.8 (0.0-1.8) % Lymph # (Auto) 2.5 (1.2-5.4) K/mm3 [place] # (Auto) 0.4 (0.0-0.8) K/mm3 Eos # (Auto) 0.1 (0.0-0.4) K/mm3 Baso # (Auto) 0.1 (0.0-0.1) K/mm3 Seg Neutrophils % 58.7 (40.0-70.0) % Seg Neutrophils # 4.3 (1.8-7.7) K/mm3 Sodium 136 L (137-145) mmol/L Potassium 3.6 (3.6-5.0) mmol/L Chloride 100.3 (98-107) mmol/L Carbon Dioxide 25 (22-30) mmol/L Anion Gap 14 mmol/L BUN 15 (7-17) mg/dL Creatinine 0.7 (0.6-1.2) mg/dL Estimated GFR > 60 ml/min BUN/Creatinine Ratio 21 % Glucose 323 H (65-100) mg/dL Calcium 8.4 (8.4-10.2) mg/dL Magnesium 1.90 (1.7-2.3) mg/dL Total Bilirubin 0.60 (0.1-1.2) mg/dL AST 65 H (5-40) units/L ALT 77 H (7-56) units/L Alkaline Phosphatase 116 (35-129) units/L Total Protein 6.5 (6.3-8.2) g/dL Albumin 4.0 (3.9-5) g/dL Albumin/Globulin Ratio 1.6 % HCG, Qual Negative (Negative) Urine Color (Yellow) Urine Turbidity (Clear) Urine pH (5.0-7.0) Ur Specific [place] (1.003-1.030) Urine Protein (Negative) mg/dL Urine Glucose (UA) (Negative) mg/dL Urine Ketones (Negative) mg/dL Urine Blood (Negative) Urine Nitrite (Negative) Urine Bilirubin (Negative) Urine Urobilinogen (<2.0) mg/dL Ur Leukocyte Esterase (Negative) Urine WBC (Auto) (0.0-6.0) /HPF Urine RBC (Auto) (0.0-6.0) /HPF U Epithel Cells (Auto) (0-13.0) /HPF Urine Bacteria (Auto) (Negative) /HPF Calcium Oxalate Crystal Urine Mucus /HPF 03/22/21 Range/Units 19:24 WBC (4.5-11.0) K/mm3 RBC (3.65-5.03) M/mm3 Hgb (10.1-14.3) gm/dl Hct (30.3-42.9) % MCV (79-97) fl MCH (28-32) pg MCHC (30-34) % RDW (13.2-15.2) % Plt Count (140-440) K/mm3 Lymph % (Auto) (13.4-35.0) % [place] % (Auto) (0.0-7.3) % Eos % (Auto) (0.0-4.3) % Baso % (Auto) (0.0-1.8) % Lymph # (Auto) (1.2-5.4) K/mm3 [place] # (Auto) (0.0-0.8) K/mm3 Eos # (Auto) (0.0-0.4) K/mm3 Baso # (Auto) (0.0-0.1) K/mm3 Seg Neutrophils % (40.0-70.0) % Seg Neutrophils # (1.8-7.7) K/mm3 Sodium (137-145) mmol/L Potassium (3.6-5.0) mmol/L Chloride (98-107) mmol/L Carbon Dioxide (22-30) mmol/L Anion Gap mmol/L BUN (7-17) mg/dL Creatinine (0.6-1.2) mg/dL Estimated GFR ml/min BUN/Creatinine Ratio % Glucose (65-100) mg/dL Calcium (8.4-10.2) mg/dL Magnesium (1.7-2.3) mg/dL Total Bilirubin (0.1-1.2) mg/dL AST (5-40) units/L ALT (7-56) units/L Alkaline Phosphatase (35-129) units/L Total Protein (6.3-8.2) g/dL Albumin (3.9-5) g/dL Albumin/Globulin Ratio % HCG, Qual (Negative) Urine Color [place] (Yellow) Urine Turbidity Slightly-cloudy (Clear) Urine pH 5.0 (5.0-7.0) Ur Specific [place] 1.031 H (1.003-1.030) Urine Protein 30 mg/dl (Negative) mg/dL Urine Glucose (UA) >=500 (Negative) mg/dL Urine Ketones Neg (Negative) mg/dL Urine Blood Neg (Negative) Urine Nitrite Neg (Negative) Urine Bilirubin Neg (Negative) Urine Urobilinogen 4.0 (<2.0) mg/dL Ur Leukocyte Esterase Neg (Negative) Urine WBC (Auto) 2.0 (0.0-6.0) /HPF Urine RBC (Auto) 4.0 (0.0-6.0) /HPF U Epithel Cells (Auto) 6.0 (0-13.0) /HPF Urine Bacteria (Auto) 1+ (Negative) /HPF Calcium Oxalate Crystal 2+ Urine Mucus Few /HPF - Medical Decision Making This patient presents to the emergency department with complaint of abdominal pain, nausea and vomiting. She has a history of multiple recurrent previous bowel obstruction secondary to trichotillomania. However the patient has had [address] scans of the abdomen and pelvis within the last month that did not show any acute processes. Patient's labs have been mostly unremarkable including CBC, metabolic panel and urinalysis except for some hyperglycemia with a blood sugar of 320 and some mild transaminitis. The patient does not have any elevation in her anion gap and therefore this does not appear consistent with diabetic ketoacidosis. The patient was given a dose of IV Reglan for her nausea with vomiting, a dose of IV analgesia for abdominal pain. A CT of the abdomen pelvis with IV contrast was ordered through triage. She has a listed allergy to iodinated contrast and therefore received Benadryl and Solu-Medrol as a pretreatment. This is the same treatment regimen that worked prior to her previous CT scan of the abdomen pelvis in which she received IV contrast as well. However, shortly after receiving these medications, and before getting the CT scan done, the patient says that she has to leave. She says that there is some type of family emergency. As the patient received Benadryl and IV analgesia, I made sure that the patient is not driving herself home. Given the patient's history of recurrent bowel obstructions and her complaint of severe abdominal pain with nausea and vomiting, I explained that I need the CT scan of the abdomen and pelvis, or at least some further imaging, in order to rule out a bowel obstruction and further evaluate her symptoms. The patient says that she is unable to remain in the emergency department any further. We discussed that leaving at this time could lead to worsening of her abdominal pain, continued nausea with vomiting, an undiagnosed bowel obstruction or infection, sepsis, debility or even . The patient is awake, oriented, and has a normal decision-making capacity. Despite understanding the risk the patient has still decided to sign out AGAINST MEDICAL ADVICE. She understands that she can return to the emergency department if she changes her mind about further evaluation and/or treatment, with new or concerning symptoms, or with any acute distress. Critical Care Time: No Critical care attestation.: If time is entered above; I have spent that time in minutes in the direct care of this critically ill patient, excluding procedure time. ED Disposition Clinical Impression: Abdominal pain, Hyperglycemia Disposition: - LEFT AGAINST MED ADVICE Is pt being admited?: No Instructions: Abdominal Pain (ED) Forms: AMA Form Time of Disposition: 00:59
[2021-03-22 21:57] VITALS: BP 141/81
== END 2021-03-22 22:00 | disposition left against medical advice (07) ==
LOC: ED 14:58
DX: E11.65 Type 2 diabetes mellitus with hyperglycemia (principal); I10 Essential (primary) hypertension; Z79.899 Other long term (current) drug therapy
CPT/HCPCS: 36415; 80053; 81001; 83735; 84703; 85025; 96374; 96375; 99283; J1200; J2270; J2765; J2930

== ENCOUNTER 2021-04-25 16:42 | Emergency (ER) | payer SELFPAY ==
[2021-04-25 17:59] VITALS: BP 155/94
[2021-04-25] MEDS ORDERED: MORPHINE 4 MG/1 ML INJ IV ONE (19:25)
[2021-04-25] MEDS ORDERED: ONDANSETRON 4 MG/2 ML INJ IV ONE (19:25)
[2021-04-25] MEDS ORDERED: FAMOTIDINE 20 MG/2 ML INJ IV ONE (19:25)
[2021-04-25] MEDS ORDERED: SODIUM CHLORIDE 0.9% 1000 ML 1,000 ML IV ONE ×2 (19:25→19:26)
--- NOTE | 2021-04-25 20:03 | XRay Report ---
LEFT WRIST 3 VIEWS INDICATION / CLINICAL INFORMATION: Fall with left wrist pain.. COMPARISON: None available. FINDINGS: BONES / JOINT(S): There are moderately advanced degenerative changes involving the first carpometacar pal joint. I see no evidence of acute fracture or subluxation. SOFT TISSUES: No significant abnormality. ADDITIONAL FINDINGS: None. Signer Name: Ruddy Valdivia MD Signed: 04/25/2021 7:59 PM Workstation Name: [id number]
--- NOTE | 2021-04-25 20:05 | XRay Report ---
LEFT KNEE 3 VIEWS INDICATION / CLINICAL INFORMATION: Fall with left knee pain. COMPARISON: None available. FINDINGS: BONES / JOINT(S): There is no evidence of fracture, subluxation or significant joint effusion. There are minimal degenerative changes. SOFT TISSUES: No significant abnormality. ADDITIONAL FINDINGS: None. Signer Name: Ruddy Valdivia MD Signed: 04/25/2021 8:01 PM Workstation Name: [id number]
--- NOTE | 2021-04-25 20:07 | XRay Report ---
PA CHEST AND LEFT RIB DETAIL 5 VIEWS INDICATION / CLINICAL INFORMATION: Fall with left chest wall pain. COMPARISON: CXR 02/28/21. FINDINGS: The heart size and pulmonary vasculature are normal. There is a calcified left infrahilar lymph node. The lungs are otherwise clear. There is no evidence of pleural effusion or pneumothorax. I see no evidence of an acute rib fracture or other significant abnormality. Signer Name: Ruddy Valdivia MD Signed: 04/25/2021 8:03 PM Workstation Name: [id number]
[2021-04-25 20:11] LABS: Basophils % (Auto) 0.6 % (0.0-1.8); Eosinophils # (Auto) 0.1 K/mm3 (0.0-0.4); Eosinophils % (Auto) 1.2 % (0.0-4.3); Lymphocytes # (Auto) 2.1 K/mm3 (1.2-5.4); Lymphocytes % (Auto) 30.7 % (13.4-35.0); Mean Corpuscular HGB Conc 36 % (30-34); Mean Corpuscular Volume 91 fl (79-97); Monocytes # (Auto) 0.4 K/mm3 (0.0-0.8); Monocytes % (Auto) 5.5 % (0.0-7.3); Platelet Count 167 K/mm3 (140-440); Red Blood Count 4.78 M/mm3 (3.65-5.03); Red Cell Distribution Width 13.9 % (13.2-15.2)
[2021-04-25 20:15] LABS: Hematocrit 43.2 % (30.3-42.9); Hemoglobin 15.5 gm/dl (10.1-14.3)
[2021-04-25] MEDS ORDERED: diphenhydrAMINE 50 MG/ML VIAL IV ONE (20:26)
[2021-04-25] MEDS ORDERED: diphenhydrAMINE 50 MG/ML VIAL ONE (20:26)
[2021-04-25 20:34] LABS: Alanine Aminotransferase 98 units/L (7-56); Albumin 3.8 g/dL (3.9-5); Blood Urea Nitrogen 8 mg/dL (7-17); Calcium 9.5 mg/dL (8.4-10.2); Hemolysis Index 61
[2021-04-25 20:43] LABS: BUN/Creatinine Ratio 16
--- NOTE | 2021-04-25 21:17 | Emergency Department Report ---
ED Abdominal Pain HPI - General Chief Complaint: Fall Stated Complaint: FALL/BS HIGH Source: patient Mode of arrival: Ambulatory Limitations: No Limitations - History of Present Illness Initial Comments: Patient is a 55-year-old white female with a history of hypertension, non-in sulin-dependent diabetes, COPD, cervical cancer and prior small bowel obstruction who presents to the ED with complaint of acute onset persistent intractable nausea and vomiting with epigastric pain for the last 3 days, worse in the last 24 hours. Patient states that he has previously been been to various hospital emergency departments for intractable nausea and vomiting and hyperglycemia in the last 2 weeks the last time which was about 4 days ago where he was treated for the same at [facility] ER. Patient states that while on her way to the ED for evaluation of her intractable nausea and vomiting and epigastric pain, he also went to a store to get some water and slipped and f ell down landing on her her left wrist and twisting her left knee and in the process hit her left lateral rib cage and now complains of severe left lateral rib pain, left knee and left wrist pain. Patient denies head or neck injuries, dizziness, syncope, seizures, shortness of breath, numbness and tingling or weakness of upper and lower extremities bilaterally, hemoptysis, diarrhea, fever, chills, change in vision or back pain. MD Complaint: abdominal pain (epigastric pain), other (nausea and vomiting; left wrist, left rib pain and left knee pain s/p fall ) -: Sudden, days(s) (3) Location: epigastric Radiation: none Migration to: no migration Severity: severe Severity scale (0 -10): 9 Quality: aching, sharp Consistency: constant Improves With: nothing Worsens With: nothing Associated Symptoms: nausea, vomiting, anorexia. denies: diarrhea, fever, constipation, dysuria, hematemesis, melena, hematuria - Related Data Previous Rx's Medication Instructions Recorded Last Taken Type Dicyclomine [Bentyl] 20 mg PO QID PRN #40 tablet 07/28/20 Unknown Rx Cyclobenzaprine [Flexeril] 10 mg PO TID PRN #14 tablet 02/08/21 Unknown Rx HYDROcodone/APAP 5-325 [[place] 1 - 2 each PO Q6HR PRN #14 tablet 02/08/21 Unknown Rx 5/325] Baclofen 20 mg PO Q12H PRN #20 tablet 04/25/21 Unknown Rx Dicyclomine [Bentyl] 20 mg PO Q6H PRN #30 tablet 04/25/21 Unknown Rx Famotidine [Pepcid] 20 mg PO BID #60 tablet 04/25/21 Unknown Rx Promethazine [Phenergan] 25 mg [place] Q6HR PRN #20 supp.rect 04/25/21 Unknown Rx Allergies Allergy/AdvReac Type Severity Reaction Status Date / Time Iodinated Contrast Media Allergy Anaphylaxis Verified 02/28/21 15:52 ketorolac [From Toradol] Allergy Anaphylaxis Verified 02/28/21 15:52 ED Review of Systems ROS: Stated complaint: FALL/BS HIGH Other details as noted in HPI Constitutional: denies: chills, fever Eyes: denies: eye pain, eye discharge, vision change ENT: denies: ear pain, throat pain Respiratory: denies: cough, shortness of breath, wheezing Cardiovascular: chest pain (left lateral rib pain). denies: palpitations Endocrine: no symptoms reported Gastrointestinal: abdominal pain (epigastric pain), nausea, vomiting. denies: diarrhea Genitourinary: denies: urgency, dysuria, discharge Musculoskeletal: arthralgia (left wrist and knee pain). denies: back pain, joint swelling Skin: denies: rash, lesions Neurological: denies: headache, weakness, paresthesias Psychiatric: denies: anxiety, depression Hematological/Lymphatic: denies: easy bleeding, easy bruising ED Past Medical Hx - Past Medical History Previous Medical History?: Yes Hx Hypertension: Yes Hx Diabetes: Yes Hx COPD: Yes Additional medical history: Trichotillomania, bowel Obstruction-2017, CERVICAL CA - Surgical History Additional Surgical History: Bowel Obstruction, Trach x 3 - Social History Smoking Status: Never Smoker Substance Use Type: None - Medications Home Medications: Home Medications Medication Instructions Recorded Confirmed Last Taken Type Dicyclomine [Bentyl] 20 mg PO QID PRN #40 tablet 07/28/20 Unknown Rx Cyclobenzaprine [Flexeril] 10 mg PO TID PRN #14 tablet 02/08/21 Unknown Rx HYDROcodone/APAP 5-325 [[place] 1 - 2 each PO Q6HR PRN #14 tablet 02/08/21 Unknown Rx 5/325] Baclofen 20 mg PO Q12H PRN #20 tablet 04/25/21 Unknown Rx Dicyclomine [Bentyl] 20 mg PO Q6H PRN #30 tablet 04/25/21 Unknown Rx Famotidine [Pepcid] 20 mg PO BID #60 tablet 04/25/21 Unknown Rx Promethazine [Phenergan] 25 mg [place] Q6HR PRN #20 supp.rect 04/25/21 Unknown Rx ED Physical Exam - General Limitations: No Limitations General appearance: alert, in no apparent distress - Head Head exam: Present: atraumatic, normocephalic, normal inspection - Eye Eye exam: Present: normal appearance, PERRL, EOMI Pupils: Present: normal accommodation - ENT ENT exam: Present: normal exam, normal orophraynx, mucous membranes moist, TM's normal bilaterally, normal external ear exam - Neck Neck exam: Present: normal inspection, full ROM - Respiratory Respiratory exam: Present: normal lung sounds bilaterally, chest wall tenderness (Palpable left lateral rib and chest wall tenderness). Absent: respiratory distress, wheezes, rales, rhonchi, decreased breath sounds, prolonged expiratory - Cardiovascular Cardiovascular Exam: Present: regular rate, normal rhythm, normal heart sounds. Absent: systolic murmur, diastolic murmur, rubs, gallop - GI/Abdominal GI/Abdominal exam: Present: soft, tenderness (Palpable epigastric tenderness), normal bowel sounds. Absent: guarding, rebound, hyperactive bowel sounds, hypoactive bowel sounds - Extremities Exam Extremities exam: Present: normal inspection, full ROM, tenderness (Palpable left knee and wrist tenderness), normal capillary refill. Absent: pedal edema, joint swelling, calf tenderness - Back Exam Back exam: Present: normal inspection, full ROM. Absent: tenderness, CVA t enderness (R), CVA tenderness (L), muscle spasm, paraspinal tenderness, vertebral tenderness, rash noted - Neurological Exam Neurological exam: Present: alert, oriented X3, CN II-XII intact, normal gait, reflexes normal - Psychiatric Psychiatric exam: Present: normal affect, normal mood - Skin Skin exam: Present: warm, dry, intact, normal color. Absent: rash ED Course Vital Signs 04/25/21 17:50 Temperature 98.2 F Pulse Rate 80 Respiratory 18 Rate Blood Pressure 155/94 O2 Sat by Pulse 98 Oximetry ED Medical Decision Making - Lab Data Result diagrams: 04/25/21 19:49 04/25/21 19:49 - Radiology Data Radiology results: report reviewed, image reviewed [facility] [address] [place] [address] XRay Report Signed Patient: BRAD SMALL MR#: [id number] : 1965 Acct:[id number] Age/Sex: 55 / F ADM Date: 04/25/21 Loc: ED Attending Dr: Ordering Physician: GUS SALINAS Date of Service: 04/25/21 Procedure(s): XR wrist 3+V LT Accession Number(s): [id number] cc: GUS SALINAS Fluoro Time In Minutes: LEFT WRIST 3 VIEWS INDICATION / CLINICAL INFORMATION: Fall with left wrist pain.. COMPARISON: None available. FINDINGS: BONES / JOINT(S): There are moderately advanced degenerative changes involving the first carpometacarpal joint. I see no evidence of acute fracture or subluxation. SOFT TISSUES: No significant abnormality. ADDITIONAL FINDINGS: None. Signer Name: Rdudy Valdivia MD Signed: 04/25/2021 7:59 PM Workstation Name: [id number] Transcribed By: RT Dictated By: Ruddy Valdivia MD Electronically Authenticated By: Ruddy Valdivia MD Signed Date/Time: 04/25/211958 DD/ 57 TD/TT: [facility] [address] [place] [address] XRay Report Signed Patient: BRAD SMALL MR#: [id number] : 1965 Acct:[id number] Age/Sex: 55 / F ADM Date: 04/25/21 Loc: ED Attending Dr: Ordering Physician: GUS SALINAS Date of Service: 04/25/21 Procedure(s): XR knee 3V LT Accession Number(s): [id number] cc: GUS SALINAS Fluoro Time In Minutes: LEFT KNEE 3 VIEWS INDICATION / CLINICAL INFORMATION: Fall with left knee pain. COMPARISON: None available. FINDINGS: BONES / JOINT(S): There is no evidence of fracture, subluxation or significant joint effusion. There are minimal degenerative changes. SOFT TISSUES: No significant abnormality. ADDITIONAL FINDINGS: None. Signer Name: Ruddy Valdivia MD Signed: 04/25/2021 8:01 PM Workstation Name: [id number] Transcribed By: RT Dictated By: Ruddy Valdivia MD Electronically Authenticated By: Ruddy Valdivia MD Signed Date/Time: 04/25/212000 DD/ 99 TD/TT: [facility] [address] [place] [address] XRay Report Signed Patient: BRAD SMALL MR#: [id number] : 1965 Acct:[id number] Age/Sex: 55 / F ADM Date: 04/25/21 Loc: ED Attending Dr: Ordering Physician: GUS SALINAS Date of Service: 04/25/21 Procedure(s): XR ribs UNI w PA chest 3+V LT Accession Number(s): [id number] cc: GUS SALINAS Fluoro Time In Minutes: PA CHEST AND LEFT RIB DETAIL 5 VIEWS INDICATION / CLINICAL INFORMATION: Fall with left chest wall pain. COMPARISON: CXR 02/28/21. FINDINGS: The heart size and pulmonary vasculature are normal. There is a calcified left infrahilar lymph node. The lungs are otherwise clear. There is no evidence of pleural effusion or pneumothorax. I see no evidence of an acute rib fracture or other significant abnormality. Signer Name: Ruddy Valdivia MD Signed: 04/25/2021 8:03 PM Workstation Name: [id number] Transcribed By: RT Dictated By: Ruddy Valdivia MD Electronically Authenticated By: Ruddy Valdivia MD Signed Date/Time: 04/25/212002 DD/ 00 TD/TT: - Medical Decision Making This is a 55-year-old white female with a history of hypertension, eon-kzwvnhu-huvcvkyxs diabetes, COPD, cervical cancer and prior small bowel obstruction who presents to the ED with complaint of acute onset persistent intractable nausea and vomiting with epigastric pain for the last 3 days, worse in the last 24 hours. Patient states that he has previously been been to various hospital emergency departments for intractable nausea and vomiting and hyperglycemia in the last 2 weeks the last time which was about 4 days ago where he was treated for the same at [facility] ER. Patient states that while on her way to the ED for evaluation of her intractable nausea and vomiting and epigastric pain, he also went to a store to get some water and slipped and fell down landing on her her left wrist and twisting her left knee and in the process hit her left lateral rib cage and now complains of severe left lateral rib pain, left knee and left wrist pain. In the ED, patient is alert and oriented x3 and is not in any distress with normal vital signs. Patient however appears to be in pain during the physical exam. Patient was treated for pain in the ED and lab test results were reviewed and showed hyperglycemia of 288 mg/dL, also revealed AST of 87 and ALT of 98. The rest the lab test results are nonactionable. Patient was treated in the ED with normal saline 1 L IV bolus x1, also treated with antacids, antiemetics and pain medications. On reevaluation, patient's pain is well controlled medications. The left knee x- ray showed no acute fractures or subluxations. Left wrist x-ray showed no acute fractures or subluxation but incidentally noted moderate degenerative joint disease. Left rib and chest x-ray showed no acute rib fractures, pneumothorax, pleural effusion or any cardiopulmonary abnormalities. The patient's left wrist was splinted with Velcro splint and the left knee was also splinted with Parker wrap. Patient was therefore discharged home on muscle relaxants, antiemetic suppositories and antacids and was advised to follow-up with her primary care physician as previously scheduled in 5 to 7 days for reevaluation. Patient is advised return to the ED immediately if symptoms get worse. - Differential Diagnosis rib fractures; ankle sprain; knee sprain; dehydration; GERD; gastritis Critical care attestation.: If time is entered above; I have spent that time in minutes in the direct care of this critically ill patient, excluding procedure time. ED Disposition Clinical Impression: Nausea and vomiting in adult patient Abdominal pain Qualifiers: Abdominal location: epigastric Qualified Code(s): R10.13 - Epigastric pain Hyperglycemia due to type 2 diabetes mellitus Qualifiers: Diabetes mellitus correction insulin use: without technician terminal and repeater use Qualified Code(s): E11.65 - Type 2 diabetes mellitus with hyperglycemia Sprain of left wrist Qualifiers: Encounter type: initial encounter Qualified Code(s): S63.502A - Unspecified sprain of left wrist, initial encounter Sprain of left knee Qualifiers: Encounter type: initial encounter Involved ligament of knee: unspecified ligament Qualified Code(s): S83.92XA - Sprain of unspecified site of left knee, initial encounter Contusion of rib on left side Qualifiers: Encounter type: initial encounter Qualified Code(s): S20.212A - Contusion of left front wall of thorax, initial encounter Disposition: DC-01 TO HOME OR SELFCARE Is pt being admited?: No Does the pt Need Aspirin: No Condition: Stable Instructions: Diabetes Mellitus Type 2 in Adults (ED), Hyperglycemia, Wvmw-lw-Bxlv, Contusion, Lche-lw-Itir, Knee Sprain, Adult, Keoj-ig-Fdho, Type 2 Diabetes Mellitus, Self Care, Adult, Ndoi-ru-Veko, Nausea and Vomiting, Adult, Vavk-gs-Zzyc, Abdominal Pain, Adult, Gkpa-dh-Idsz, Wrist Pain, Adult, Ijxa-vm-Ounf Additional Instructions: All lab test results were reviewed and showed hyperglycemia of 288 mg/dL, transaminitis of ALT of 98 and AST of 87. The rest of the lab test results were nonactionable. Left rib and chest x-ray showed no acute rib fractures or subluxations, pneumothorax, pleural effusion or any cardiopulmonary abnormalities or pneumonitis. Left knee x-ray showed no acute fractures or subluxations. The left wrist x-ray showed no acute fractures or subluxations but moderate degenerative joint disease. The pain in your left rib cage, left knee and left wrist are most likely due to musculoskeletal injuries following the fall. Therefore take medications previously prescribed for pain with food, drink plenty of fluids, follow-up with your primary care physician in 5 to 7 days for reevaluation or as previously scheduled. Return to the ED immediately if symptoms get worse. Prescriptions: Baclofen 20 mg PO Q12H PRN #20 tablet PRN Reason: muscle spasm Dicyclomine [Bentyl] 20 mg PO Q6H PRN #30 tablet PRN Reason: abdominal pain Famotidine [Pepcid] 20 mg PO BID #60 tablet Promethazine [Phenergan] 25 mg [place] Q6HR PRN #20 supp.rect PRN Reason: Nausea And Vomiting Referrals: SAY GARCIA MD [Staff Physician] - 7-10 days Time of Disposition: 21:23 Print Language: BELGIAN
== END 2021-04-25 21:57 | disposition home or self-care (01) ==
LOC: ED 16:42
DX: S83.8X2A Sprain of other specified parts of left knee, initial encounter (principal); S63.592A Other specified sprain of left wrist, initial encounter; S20.212A Contusion of left front wall of thorax, initial encounter; E11.65 Type 2 diabetes mellitus with hyperglycemia; R10.13 Epigastric pain; R11.2 Nausea with vomiting, unspecified; I10 Essential (primary) hypertension; E11.9 Type 2 diabetes mellitus without complications; J44.9 Chronic obstructive pulmonary disease, unspecified; Z91.041 Radiographic dye allergy status; Z88.8 Allergy status to other drugs, medicaments and biological substances; Z79.899 Other long term (current) drug therapy; W18.39XA Other fall on same level, initial encounter; Y93.89 Activity, other specified; Y92.89 Other specified places as the place of occurrence of the external cause; Y99.8 Other external cause status
CPT/HCPCS: 29125; 71101; 73110; 73562; 80053; 82962; 83690; 84484; 85025; 96361; 96374; 96375; 99284; J1200; J2270; J2405; J7030

== ENCOUNTER 2021-07-07 00:31 | Emergency (ER) | payer OTHER, SELFPAY ==
--- NOTE | 2021-07-07 02:20 | XRay Report ---
CHEST 2 VIEWS INDICATION: SOB. COMPARISON: 04/25/2021 FINDINGS: SUPPORT DEVICES: None. HEART: Within normal limits. LUNGS/PLEURA: Minimal patchy airspace disease in the right midlung and left costophrenic angle region . No dense consolidation or pleural effusion. No pneumothorax. ADDITIONAL FINDINGS: None. IMPRESSION: 1. Minimal airspace disease as above. Signer Name: Roger Tinoco MD Signed: 07/07/2021 2:15 AM Workstation Name: [id number]
[2021-07-07 02:41] LABS: Basophils % (Auto) 0.5 % (0.0-1.8); Eosinophils % (Auto) 1.1 % (0.0-4.3); Lymphocytes # (Auto) 1.4 K/mm3 (1.2-5.4); Lymphocytes % (Auto) 44.4 % (13.4-35.0); Mean Corpuscular HGB Conc 36 % (30-34); Mean Corpuscular Volume 90 fl (79-97); Monocytes # (Auto) 0.2 K/mm3 (0.0-0.8); Monocytes % (Auto) 6.4 % (0.0-7.3); Platelet Count 136 K/mm3 (140-440); Red Blood Count 5.44 M/mm3 (3.65-5.03)
[2021-07-07 02:45] LABS: Hematocrit 48.9 % (30.3-42.9); Hemoglobin 17.6 gm/dl (10.1-14.3)
[2021-07-07 03:04] LABS: Albumin 4.4 g/dL (3.9-5); Blood Urea Nitrogen 12 mg/dL (7-17); Calcium 8.9 mg/dL (8.4-10.2); Hemolysis Index 46
[2021-07-07 03:15] LABS: Alanine Aminotransferase 126 units/L (7-56)
[2021-07-07 03:17] LABS: BUN/Creatinine Ratio 30
[2021-07-07] MEDS ORDERED: ONDANSETRON 4 MG/2 ML INJ IV ONE (06:12)
[2021-07-07] MEDS ORDERED: dexAMETHasone 4 MG/ML VIAL IV ONE (06:12)
[2021-07-07] MEDS ORDERED: SODIUM CHLORIDE 0.9% 500 ML 500 ML IV ONE (06:12)
[2021-07-07] MEDS ORDERED: SODIUM CHLORIDE 0.9% 1000 ML 1,000 ML IV ONE (06:13)
[2021-07-07] MEDS ORDERED: guaiFENesin/CODEINE 100-10MG ORAL LIQD 5 ML PO ONE (06:13)
--- NOTE | 2021-07-07 06:16 | Emergency Department Report ---
HPI - General Chief Complaint: Dyspnea/Respdistress Time Seen by Provider: 07/07/21 06:03 - HPI HPI: This is a 55-year-old female who presents to the emergency department with a complaint of nausea with vomiting, fever with chills, shortness of breath, mixed dry and productive cough that has been going on for about 1 week. She has a past medical history of COPD on 2 L nasal cannula, diabetes, hypertension. The patient was just recently found to be positive for COVID-19 at [facility] last when she went there for similar symptoms. The patient also says that she is due to have some intestinal surgery through [place] secondary to some type of bowel obstruction due to her trichotillomania. However the surgery had to be postponed secondary to her COVID-19 diagnosis. She has not taken anything for symptoms prior to p resentation today. ED Past Medical Hx - Past Medical History Previous Medical History?: Yes Hx Hypertension: Yes Hx Diabetes: Yes Hx COPD: Yes (Home 02 prn 2 liters) Additional medical history: Trichotillomania, bowel Obstruction-2017, CERVICAL CA - Surgical History Past Surgical History?: Yes Additional Surgical History: Bowel Obstruction, Trach x 3 - Social History Smoking Status: Never Smoker Substance Use Type: None - Medications Home Medications: Home Medications Medication Instructions Recorded Confirmed Last Taken Type Dicyclomine [Bentyl] 20 mg PO QID PRN #40 tablet 07/28/20 Unknown Rx Cyclobenzaprine [Flexeril] 10 mg PO TID PRN #14 tablet 02/08/21 Unknown Rx HYDROcodone/APAP 5-325 [Odd 1 - 2 each PO Q6HR PRN #14 tablet 02/08/21 Unknown Rx 5/325] Baclofen 20 mg PO Q12H PRN #20 tablet 04/25/21 Unknown Rx Dicyclomine [Bentyl] 20 mg PO Q6H PRN #30 tablet 04/25/21 Unknown Rx Famotidine [Pepcid] 20 mg PO BID #60 tablet 04/25/21 Unknown Rx Promethazine [Phenergan] 25 mg AL Q6HR PRN #20 supp.rect 04/25/21 Unknown Rx Albuterol Mdi (or & Nicu Only) 2 puff IH QID PRN #8.5 gram 07/07/21 Unknown Rx [ProAir HFA Inhaler] Benzonatate [Tessalon Perles] 100 mg PO Q8HR PRN #20 capsule 07/07/21 Unknown Rx ED Review of Systems ROS: Stated complaint: WHEEZING SOB PAIN THOWING UP Other details as noted in HPI Comment: All other systems reviewed and negative Constitutional: chills, fever Eyes: denies: eye pain, vision change ENT: denies: ear pain, throat pain Respiratory: cough, shortness of breath Cardiovascular: denies: palpitations, edema Gastrointestinal: nausea, vomiting Genitourinary: denies: dysuria, discharge Musculoskeletal: myalgia. denies: joint swelling Skin: denies: rash, lesions Neurological: denies: numbness, paresthesias Physical Exam - Physical Exam Vital Signs: Vital Signs 07/07/21 07/07/21 07/07/21 01:40 05:07 05:09 Temperature 99.9 F H 99.9 F H Pulse Rate 76 96 H Respiratory 18 18 Rate Blood Pressure 151/87 131/78 Blood Pressure 131/78 [Left] O2 Sat by Pulse 93 95 98 Oximetry 07/07/21 05:31 Temperature Pulse Rate 101 H Respiratory 25 H Rate Blood Pressure 130/69 Blood Pressure [Left] O2 Sat by Pulse 95 Oximetry Physical Exam: GENERAL: The patient is well-developed well-nourished. HENT: Normocephalic. Atraumatic. Patient has moist mucous membranes. EYES: Extraocular motions are intact. NECK: Supple. Trachea is midline. CHEST/LUNGS: Clear to auscultation. Mild tachypnea but no accessory muscle use. No conversational dyspnea. A productive sounding cough heard during examination. HEART/CARDIOVASCULAR: Regular. There is no tachycardia. There is no murmur. ABDOMEN: Abdomen is soft. Mild generalized abdominal tenderness to palpation. No guarding. Patient has normal bowel sounds. There is no abdominal distention. SKIN: Skin is warm and dry. NEURO: The patient is awake, alert, and oriented. The patient is cooperative. The patient has no focal neurologic deficits. Normal speech. MUSCULOSKELETAL: There is no tenderness or deformity. There is no limitation range of motion. ED Course Vital Signs 07/07/21 07/07/21 07/07/21 01:40 05:07 05:09 Temperature 99.9 F H 99.9 F H Pulse Rate 76 96 H Respiratory 18 18 Rate Blood Pressure 151/87 131/78 Blood Pressure 131/78 [Left] O2 Sat by Pulse 93 95 98 Oximetry 07/07/21 05:31 Temperature Pulse Rate 101 H Respiratory 25 H Rate Blood Pressure 130/69 Blood Pressure [Left] O2 Sat by Pulse 95 Oximetry ED Medical Decision Making - Lab Data Result diagrams: 07/07/21 02:14 07/07/21 02:14 Lab Results 07/07/21 07/07/21 07/07/21 Range/Units 02:14 02:14 02:14 WBC 3.1 L (4.5-11.0) K/mm3 RBC 5.44 H (3.65-5.03) M/mm3 Hgb 17.6 H (10.1-14.3) gm/dl Hct 48.9 H (30.3-42.9) % MCV 90 (79-97) fl MCH 32 (28-32) pg MCHC 36 H (30-34) % RDW 14.0 (13.2-15.2) % Plt Count 136 L (140-440) K/mm3 Lymph % (Auto) 44.4 H (13.4-35.0) % [facility] % (Auto) 6.4 (0.0-7.3) % Eos % (Auto) 1.1 (0.0-4.3) % Baso % (Auto) 0.5 (0.0-1.8) % Lymph # (Auto) 1.4 (1.2-5.4) K/mm3 [facility] # (Auto) 0.2 (0.0-0.8) K/mm3 Eos # (Auto) 0.0 (0.0-0.4) K/mm3 Baso # (Auto) 0.0 (0.0-0.1) K/mm3 Seg Neutrophils % 47.6 (40.0-70.0) % Seg Neutrophils # 1.5 L (1.8-7.7) K/mm3 VBG pH 7.317 L (7.320-7.420) Sodium 134 L (137-145) mmol/L Potassium 3.8 (3.6-5.0) mmol/L Chloride 96.2 L (98-107) mmol/L Carbon Dioxide 23 (22-30) mmol/L Anion Gap 19 mmol/L BUN 12 (7-17) mg/dL Creatinine 0.4 L (0.6-1.2) mg/dL Estimated GFR > 60 ml/min BUN/Creatinine Ratio 30 % Glucose 286 H (65-100) mg/dL Calcium 8.9 (8.4-10.2) mg/dL Total Bilirubin 0.90 (0.1-1.2) mg/dL AST 112 H (5-40) units/L ALT 126 H (7-56) units/L Alkaline Phosphatase 123 (35-129) units/L Total Protein 7.6 (6.3-8.2) g/dL Albumin 4.4 (3.9-5) g/dL Albumin/Globulin Ratio 1.4 % - EKG Data -: EKG Interpreted by Me EKG shows normal: sinus rhythm, axis, intervals, QRS complexes (Q waves to the septal leads, LVH), ST-T waves (T wave inversions to the lateral leads) Rate: normal - EKG Data When compared to previous EKG there are: previous EKG unavailable Interpretation: other (Sinus rhythm at 99 bpm, normal axis, normal intervals, Q waves to the septal leads, LVH, T wave inversions to the lateral leads) - Radiology Data Radiology results: image reviewed interpreted by me: Chest x-ray shows some mild bilateral patchy infiltrates. No widened mediastinum. No pneumothorax. - Medical Decision Making This patient presents with a low-grade fever and URI complaints, along with being recently diagnosed with COVID-19. The patient also says that she was due to have some type of intestinal surgery due to an "obstruction" secondary to her history of trichotillomania. Chest x-ray shows mild bilateral patchy airspace disease. Abdominal x-ray shows nonspecific nonobstructive appearing bowel gas. No free air. The patient's labs are positive for hyperglycemia with a blood sugar of about 280 but there is no significant anion gap elevation the patient does not appear diabetic ketoacidosis. The patient has elevated LFTs. In reviewing her previous visits she usually does have elevation of the LFTs but these are slightly worse than usual. EKG did not have any morphology consistent with ST elevation myocardial infarction. Patient was given an antitussive, IV fluid resuscitation, a dose of Decadron. The patient was able to ambulate around the emergency department, while wearing her mask, without any significant oxygen desaturation. She does not appear to require admission at this time. We discussed isolation/quarantine. She was given a prescription for an antitussive, and albuterol inhaler. The patient will return to the emergency department with any worsening of her symptoms or with any acute distress. Critical Care Time: No Critical care attestation.: If time is entered above; I have spent that time in minutes in the direct care of this critically ill patient, excluding procedure time. ED Disposition Clinical Impression: COVID-19, History of trichotillomania, Elevated liver enzymes Upper respiratory infection Qualifiers: URI type: unspecified URI Qualified Code(s): J06.9 - Acute upper respiratory infection, unspecified Disposition: TO HOME OR SELFCARE Is pt being admited?: No Condition: Stable Instructions: COVID-19 Frequently Asked Questions, COVID-19, Viral Respiratory Infection Additional Instructions: Isolate/quarantine yourself from anybody who is not vaccinated, elderly, chronically ill/debilitated, immunocompromised. Your labs show elevated liver enzymes. For this reason, please avoid any alcohol or acetaminophen/Tylenol use. I am giving you a referral for [facility] to follow-up regarding the elevated liver enzymes once you have recovered from COVID-19. Take all medications as prescribed. Return to the emergency department with any worsening of your symptoms, new or concerning symptoms not addressed during this current emergency department visit, or with any acute distress. Prescriptions: Albuterol Mdi (or & Nicu Only) [ProAir HFA Inhaler] 2 puff IH QID PRN #8.5 gram PRN Reason: Shortness Of Breath Benzonatate [Tessalon Perles] 100 mg PO Q8HR PRN #20 capsule PRN Reason: Cough Referrals: JC GAMINO MD [Primary Care Provider] - 3-5 Days [facility] [Provider Group] - 3-5 Days Time of Disposition: 08:56
[2021-07-07] MEDS ORDERED: MORPHINE 4 MG/1 ML INJ IV ONE (06:45)
[2021-07-07] MEDS ORDERED: BENZONATATE 100 MG CAP PO ONE (06:46)
[2021-07-07] MEDS ORDERED: diphenhydrAMINE 25 MG CAP PO ONE (06:53)
--- NOTE | 2021-07-07 08:10 | XRay Report ---
ABDOMEN 2 VIEWS INDICATION / CLINICAL INFORMATION: Abd pain. COMPARISON: CT scan dated 02/28/2021 FINDINGS: TUBES / LINES: None. BOWEL GAS PATTERN: No significant abnormality. FREE AIR / EXTRALUMINAL GAS: None seen. ADDITIONAL FINDINGS: No significant additional findings. CHEST: Visualized chest shows no significant abnormality. IMPRESSION: 1. No acute abnormality Signer Name: Joesph Vicente MD Signed: 07/07/2021 8:06 AM Workstation Name: [email or web address]
[2021-07-07 09:13] VITALS: BP 128/77
--- NOTE | 2021-07-09 09:10 | Electrocardiograph Report ---
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
== END 2021-07-07 09:05 | disposition home or self-care (01) ==
LOC: ED 00:31
DX: U07.1 COVID-19 (principal); J06.9 Acute upper respiratory infection, unspecified; R74.8 Abnormal levels of other serum enzymes; J44.9 Chronic obstructive pulmonary disease, unspecified; I10 Essential (primary) hypertension; E11.9 Type 2 diabetes mellitus without complications; Z86.59 Personal history of other mental and behavioral disorders; Z98.890 Other specified postprocedural states; Z91.041 Radiographic dye allergy status; Z88.8 Allergy status to other drugs, medicaments and biological substances; Z79.899 Other long term (current) drug therapy
CPT/HCPCS: 36415; 71046; 74019; 80053; 82805; 85025; 87040; 93005; 96374; 96375; 99284; J1100; J2270; J2405; J7030; J7040

== ENCOUNTER 2021-09-27 19:25 | Emergency (ER) | payer OTHER ==
--- NOTE | 2021-09-28 09:11 | Electrocardiograph Report ---
[facility] Test Date: 2021-09-27 Test Time: 19:34:22 Pat Name: BRAD SMALL Department: Room: Gender: F Guest Associate: nurse : 1965 Requested By: SEBAS JACOBSON Order Number: [id number] Reading MD: Paul Cueto Measurements Intervals [place] Rate: 89 P: 82 [place]: 148 QRS: 17 QRSD: 78 T: 125 QT: 389 QTc: 473 Interpretive Statements Sinus rhythm Probable left atrial enlargement Abnormal T, consider ischemia, lateral leads Compared to ECG 07/07/2021 02:15:44 T-wave abnormality now present Possible ischemia now present Electronically Signed On 09-28-2021 9:11:06 EDT by Paul Cueto
== END 2021-09-27 23:42 ==
LOC: ED 19:25
DX: R07.9 Chest pain, unspecified (principal); Z53.21 Procedure and treatment not carried out due to patient leaving prior to being seen by health care provider
CPT/HCPCS: 93005